=== PATIENT | male | born 2000 | race Caucasian/White ===

== ENCOUNTER 2019-10-19 20:52 | Emergency (ER) | payer BC ==
[2019-10-19] MEDS ORDERED: DIPHENHYDRAMINE 25 MG TAB/CAP ONE (21:18)
[2019-10-19] MEDS ORDERED: predniSONE 20 MG TAB ONE (21:18)
[2019-10-19] MEDS ORDERED: FAMOTIDINE 20 MG TAB ONE (21:19)
[2019-10-19] MEDS ORDERED: dexAMETHasone 4 MG/ML VIAL ONE ×2 (21:29→21:42)
[2019-10-19] MEDS ORDERED: dexAMETHasone 10 MG/ML VIAL ONE (21:44)
--- NOTE | 2019-10-19 22:34 | ER ---
Nurse's Notes [facility] Name: Bradford Somers Age: 19 yrs Sex: Male : 2000 Arrival Date: 10/19/2019 Time: 21:00 Bed 18 Private MD: Diagnosis: Urticaria;Angioneurotic edema Presentation: 10/19 21:36 Presenting complaint: Patient states: "there was cookies on the counter when I woke up j from a nap and I ate one and it had peanut butter in it. I am allergic to peanut butter. I took 50 mg of Benadryl before coming, but I was feeling pretty bad at first.". Transition of care: patient was not received from another setting of care. Onset: The symptoms/episode began/occurred suddenly. Anaphylaxis evaluation, no signs or symptoms of anaphylaxis were noted. Onset of symptoms was October 19, 2019. Risk Assessment: Do you want to hurt yourself or someone else? Patient reports no desire to harm self or others. Initial Sepsis Screen: Does the patient meet any 2 criteria? No. Patient's initial sepsis screen is negative. Does the patient have a suspected source of infection? No. Patient's initial sepsis screen is negative. Care prior to arrival: None. 21:36 Method Of Arrival: Ambulatory [facility] 21:36 Acuity: DON 3 jd3 Historical: - Allergies: 21:39 azithromycin; jd3 - Home Meds: 21:39 None [Active]; jd3 - PMHx: 21:39 None; jd3 - PSHx: 21:39 left arm; Appendectomy; jd3 - Immunization history:: Adult Immunizations up to date. - Coronavirus screen:: The patient has NOT traveled to [place] in the past 14 days. The patient has NOT had contact with known/suspected case of Coronavirus? Proceed with normal triage procedures. - Family history:: not pertinent. - Social history:: Smoking status: Patient reports the use of cigarette tobacco products, smokes one-half pack cigarettes per day. - Ebola Screening: : Patient negative for fever greater than or equal to 101.5 degrees Fahrenheit, and additional compatible Ebola Virus Disease symptoms. Screenin:42 Abuse screen: Denies threats or abuse. Nutritional screening: No deficits noted. jd3 Tuberculosis screening: No symptoms or risk factors identified. Fall Risk Ambulatory Aid- None/Bed Rest/Nurse Assist (0 pts). Gait- Normal/Bed Rest/Wheelchair (0 pts) Mental Status- Oriented to own ability (0 pts). Total Ramirez Fall Scale indicates No Risk (0-24 pts). Assessment: 21:40 General: Appears in no apparent distress. comfortable, Behavior is calm, cooperative, jd3 appropriate for age. Pain: Denies pain. Neuro: Level of Consciousness is awake, alert, obeys commands, Oriented to person, place, time, situation. Cardiovascular: Denies chest pain, Capillary refill < 3 seconds Patient's skin is warm and dry. Respiratory: Reports shortness of breath prior to arrival Airway is patent Respiratory effort is even, unlabored, Respiratory pattern is regular, symmetrical, Breath sounds are clear bilaterally. Denies cough, shortness of breath. GI: No signs and/or symptoms were reported involving the gastrointestinal system. Reports vomiting and abdominal pain prior to arrival. : No signs and/or symptoms were reported regarding the genitourinary system. EENT: small amount of swelling noted to the uvula . Derm: Skin is intact, Skin is dry, Skin is normal, Skin temperature is warm. Musculoskeletal: Circulation, motion, and sensation intact. Range of motion: intact in all extremities. 22:04 Reassessment: Patient appears in no apparent distress at this time. Patient and/or jd3 family updated on plan of care and expected duration. Pain level reassessed. Patient is alert, oriented x 3, equal unlabored respirations, skin warm/dry/pink. reported understanding of discharge instructions, even and steady gait upon discharge. Patient denies pain at this time. Patient states feeling better. Vital Signs: 21:39 BP 130 / 70; Pulse 88; Resp 16 S; Temp 97.9(TE); Pulse Ox 100% on R/A; Weight 117.93 kg jd3 (R); Height 6 ft. 2 in. (187.96 cm) (R); Pain 0/10; 21:39 BP 137 / 63; Pulse 65; Resp 16 S; Pulse Ox 100% on R/A; Pain 0/10; jd3 21:39 Body Mass Index 33.38 (117.93 kg, 187.96 cm) jd3 ED Course: 21:00 Patient arrived in ED. ma2 21:02 José Macias MD is Attending Physician. daniel 21:10 Loy Hairston RN is Primary Nurse. jd3 21:38 Triage completed. jd3 21:39 Arm band placed on. jd3 21:42 Patient has correct armband on for positive identification. Bed in low position. Call jd3 light in reach. Side rails up X 1. Adult w/ patient. 22:04 No provider procedures requiring assistance completed. Patient did not have IV access jd3 during this emergency room visit. Administered Medications: 21:30 Drug: predniSONE 40 mg Route: PO; jd3 22:03 Follow up: Response: No adverse reaction jd3 21:30 Drug: Pepcid 40 mg Route: PO; jd3 22:03 Follow up: Response: No adverse reaction jd3 21:30 Drug: Benadryl 50 mg Route: PO; jd3 22:04 Follow up: Response: No adverse reaction jd3 21:45 Drug: Decadron 10 mg Route: IM; Site: right deltoid; jd3 22:03 Follow up: Response: No adverse reaction jd3 Outcome: 21:16 Discharge ordered by . daniel 22:04 Discharged to home ambulatory, with friend. jd3 22:04 Condition: stable 22:04 Discharge instructions given to patient, friend, Instructed on discharge instructions, follow up and referral plans. medication usage, Demonstrated understanding of instructions, follow-up care, medications, Prescriptions given X 4. 22:06 Patient left the ED. jd3 Signatures: José Macias MD MD cha Davies, Jonathon, RENÉE RN jd3 Aislinn Maki MD MD ma2 Corrections: (The following items were deleted from the chart) 22:06 21:39 BP 130 / 70; Pulse 88bpm; Resp 16bpm; Spontaneous; Pulse Ox 100% RA; 117.93 kg jd3 Reported; Height 6 ft. 2 in. Reported; BMI: 33.3; Pain 0/10; jd3
--- NOTE | 2019-10-19 22:34 | EDPHYS ---
Physician Documentation [facility] Name: Bradford Somers Age: 19 yrs Sex: Male : 2000 Arrival Date: 10/19/2019 Time: 21:00 Bed 18 Private MD: ED Physician José Macias HPI: 10/19 21:11 This 19 yrs old Male presents to ER via Unassigned with complaints of daniel Allergic Reaction. 21:11 The patient presents with difficulty swallowing, nasal itching, rash, redness of skin, daniel runny nose, swelling of the lips. Onset: The symptoms/episode began/occurred just prior to arrival. Associated signs and symptoms: Pertinent positives: hives, nausea, rash, shortness of breath. Possible causes: nuts. At home the patient or guardian has treated the symptoms with Benadryl. Severity of symptoms: At their worst the symptoms were mild moderate in the emergency department the symptoms have improved mildly. The patient has experienced similar episodes in the past, a few times. Historical: - Allergies: 21:39 azithromycin; jd3 - Home Meds: 21:39 None [Active]; jd3 - PMHx: 21:39 None; jd3 - PSHx: 21:39 left arm; Appendectomy; jd3 - Immunization history:: Adult Immunizations up to date. - Coronavirus screen:: The patient has NOT traveled to [place] in the past 14 days. The patient has NOT had contact with known/suspected case of Coronavirus? Proceed with normal triage procedures. - Family history:: not pertinent. - Social history:: Smoking status: Patient reports the use of cigarette tobacco products, smokes one-half pack cigarettes per day. - Ebola Screening: : Patient negative for fever greater than or equal to 101.5 degrees Fahrenheit, and additional compatible Ebola Virus Disease symptoms. ROS: 21:11 Constitutional: Negative for fever, chills, and weight loss, Eyes: Negative for injury, daniel pain, redness, and discharge, ENT: Negative for injury, pain, and discharge, Neck: Negative for injury, pain, and swelling, Cardiovascular: Negative for chest pain, palpitations, and edema, Respiratory: Negative for shortness of breath, cough, wheezing, and pleuritic chest pain, Abdomen/GI: Negative for abdominal pain, nausea, vomiting, diarrhea, and constipation, Back: Negative for injury and pain, : Negative for injury, bleeding, discharge, and swelling, MS/Extremity: Negative for injury and deformity, Neuro: Negative for headache, weakness, numbness, tingling, and seizure, Psych: Negative for depression, anxiety, suicide ideation, homicidal ideation, and hallucinations, Allergy/Immunology: Negative for hives, rash, and allergies, Endocrine: Negative for neck swelling, polydipsia, polyuria, polyphagia, and marked weight changes, Hematologic/Lymphatic: Negative for swollen nodes, abnormal bleeding, and unusual bruising. 21:11 Skin: Positive for rash, swelling. Exam: 21:14 Constitutional: This is a well developed, well nourished patient who is awake, alert, daniel and in no acute distress. Head/Face: Normocephalic, atraumatic. Eyes: Pupils equal round and reactive to light, extra-ocular motions intact. Lids and lashes normal. Conjunctiva and sclera are non-icteric and not injected. Cornea within normal limits. Periorbital areas with no swelling, redness, or edema. Neck: Trachea midline, no thyromegaly or masses palpated, and no cervical lymphadenopathy. Supple, full range of motion without nuchal rigidity, or vertebral point tenderness. No Meningismus. Chest/axilla: Normal chest wall appearance and motion. Nontender with no deformity. No lesions are appreciated. Cardiovascular: Regular rate and rhythm with a normal S1 and S2. No gallops, murmurs, or rubs. Normal PMI, no JVD. No pulse deficits. Respiratory: Lungs have equal breath sounds bilaterally, clear to auscultation and percussion. No rales, rhonchi or wheezes noted. No increased work of breathing, no retractions or nasal flaring. Abdomen/GI: Soft, non-tender, with normal bowel sounds. No distension or tympany. No guarding or rebound. No evidence of tenderness throughout. Back: No spinal tenderness. No costovertebral tenderness. Full range of motion. Male : Normal genitalia with no discharge or lesions. MS/ Extremity: Pulses equal, no cyanosis. Neurovascular intact. Full, normal range of motion. Neuro: Awake and alert, GCS 15, oriented to person, place, time, and situation. Cranial nerves II-XII grossly intact. Motor strength 5/5 in all extremities. Sensory grossly intact. Cerebellar exam normal. Normal gait. Psych: Awake, alert, with orientation to person, place and time. Behavior, mood, and affect are within normal limits. 21:14 ENT: Mouth: Lips: moist, Oral mucosa: normal, pink and intact, moist, Gums: normal with healthy appearance, Tongue: is normal, abscess, is not appreciated, drooling, is not appreciated, Posterior pharynx: Uvula: erythema, swelling, that is mild. Vital Signs: 21:39 BP 130 / 70; Pulse 88; Resp 16 S; Temp 97.9(TE); Pulse Ox 100% on R/A; Weight 117.93 kg jd3 (R); Height 6 ft. 2 in. (187.96 cm) (R); Pain 0/10; 21:39 BP 137 / 63; Pulse 65; Resp 16 S; Pulse Ox 100% on R/A; Pain 0/10; jd3 21:39 Body Mass Index 33.38 (117.93 kg, 187.96 cm) [facility] MDM: 21:02 Patient medically screened. [facility] 21:15 Data reviewed: vital signs, nurses notes. [facility] Administered Medications: 21:30 Drug: predniSONE 40 mg Route: PO; j 22:03 Follow up: Response: No adverse reaction [facility] 21:30 Drug: Pepcid 40 mg Route: PO; jd3 22:03 Follow up: Response: No adverse reaction j 21:30 Drug: Benadryl 50 mg Route: PO; jd3 22:04 Follow up: Response: No adverse reaction [facility] 21:45 Drug: Decadron 10 mg Route: IM; Site: right deltoid; jd3 22:03 Follow up: Response: No adverse reaction [facility] Disposition: 10/19/19 21:16 Discharged to Home. Impression: Urticaria, Angioneurotic edema. - Condition is Stable. - Discharge Instructions: Food Allergy, Hives, Angioedema, Angioedema, [id number], Food Allergy, [id number], Hives, [id number]. - Prescriptions for Benadryl 25 mg Oral Capsule - take 2 capsule by ORAL route every 6 hours As needed; 45 tablet. Pepcid 20 mg Oral Tablet - take 1 tablet by ORAL route every 12 hours for 10 days; 20 tablet. Prednisone 20 mg Oral Tablet - take 2 tablet by ORAL route once daily for 5 days; 10 tablet. EpiPen 0.3 mg Injection auto- injector - inject 1 pen by INTRAMUSCULAR route one time Inject into the outer portion of the thigh, through clothing if necessary. Indicated in the emergency treatment of allergic reactions; 1 Cartridge. - Medication Reconciliation Form, Thank You Letter, Antibiotic Education, Prescription Opioid Use form. - Follow up: Private Physician; When: 1 - 2 days; Reason: Recheck today's complaints, Continuance of care, Re-evaluation by your physician. - Problem is new. - Symptoms have improved. Signatures: José Macias MD MD cha Davies, Jonathon RN RN jd3 Corrections: (The following items were deleted from the chart) 22:06 21:16 10/19/2019 21:16 Discharged to Home. Impression: Urticaria; Angioneurotic edema. jd3 Condition is Stable. Forms are Medication Reconciliation Form, Thank You Letter, Antibiotic Education, Prescription Opioid Use. Follow up: Private Physician; When: 1 - 2 days; Reason: Recheck today's complaints, Continuance of care, Re-evaluation by your physician. Problem is new. Symptoms have improved. daniel
[2019-10-19 23:33] VITALS: BP 137/63; TEMP 97.9; O2SAT 100
== END 2019-10-19 22:06 | disposition home or self-care (01) ==
LOC: ER 20:52
DX: L50.9 Urticaria, unspecified (principal); T78.3XXA Angioneurotic edema, initial encounter; F17.210 Nicotine dependence, cigarettes, uncomplicated; Z88.1 Allergy status to other antibiotic agents
CPT/HCPCS: 96372; 99283; J1100; J7512

== ENCOUNTER 2020-05-19 10:36 | Emergency (ER) | payer BC ==
[2020-05-19] MEDS ORDERED: MEPERIDINE HCL 50 MG/ML ONE (11:27)
[2020-05-19] MEDS ORDERED: dexAMETHasone 10 MG/ML VIAL ONE (11:27)
--- NOTE | 2020-05-19 11:44 | RAD REPORT ---
EXAM DESCRIPTION: CT - Spine Lumbar Wo Con - 05/19/2020 11:20 am CLINICAL HISTORY: PAIN, lifting injury COMPARISON: None. TECHNIQUE: Thin section axial imaging of the lumbar spine was performed. Sagittal and coronal recon struction images were generated and reviewed. All CT scans are performed using dose optimization technique as appropriate and may include automated exposure control or mA/KV adjustment according to patient size. FINDINGS: Lumbar bodies are normal in height and alignment. No fracture or acute bone finding. No pa rs defects are identified. No paraspinal soft tissue mass. The L5-S1 disc level shows protruding disc material in the midline and extending into the left exit f oramen. Bulging disc material displaces the S1 nerve roots, left greater than right. Correlation is n eeded with any L5 or S1 radicular symptoms on the left. No other disc herniation or significant disc bulge identifiable. Central canal detail is inherently l imited. IMPRESSION: Protruding disc material midline and left-sided L5-S1 canal as detailed. Correlation is needed with any left lower extremity radiculopathy. No fracture or acute bone finding.
--- NOTE | 2020-05-19 11:51 | RAD REPORT ---
EXAM DESCRIPTION: CT - Thoracic Spine W/o Cont - 05/19/2020 11:20 am CLINICAL HISTORY: Persistent back pain following lifting injury COMPARISON: No remote imaging TECHNIQUE: Axial 3 mm thick images of the thoracic spine were obtained with sagittal and coronal rec onstruction images generated and reviewed. All CT scans are performed using dose optimization technique as appropriate and may include automated exposure control or mA/KV adjustment according to patient size. FINDINGS: T1-T9 bodies are normal in height. All thoracic vertebrae show normal alignment. There is subtle wedging in the T10 and T11 vertebral bodies. No acute fracture lines are present. There degene rative changes to the inferior endplates of both of these vertebrae. This configuration is believed t o be chronic. T9-10 disc space is narrowed slightly. No fracture or acute bony abnormality. No paraspinal mass or hematoma. Central canal detail is inherently limited on CT imaging. Patient has a 15 millimeter pulmonary nodule in the posterior right lower lobe. This has a coarse elisabeth tral calcification which is an indicator of a benign nodule, most likely granuloma. IMPRESSION: No acute thoracic spine finding identifiable. The slight wedging of the T10 and T11 vert ebrae is believed to be chronic. A 15 millimeter right lower lobe pulmonary nodules shows coarse central calcification which is an ind icator of a benign process. If the patient has persistent unexplained lower thoracic pain, follow-up outpatient MR imaging could be performed to assess for the possibility of acute marrow edema.
[2020-05-19] MEDS ORDERED: ONDANSETRON 4 MG/2 ML VIAL ONE (11:59)
--- NOTE | 2020-05-19 12:32 | EDPHYS ---
Physician Documentation [facility] Name: Bradford Somers Age: 20 yrs Sex: Male : 2000 Arrival Date: 05/19/2020 Time: 10:38 Bed 6 Private MD: ED Physician Henry Wiggins HPI: 05/19 12:27 This 20 yrs old Male presents to ER via Ambulatory with complaints of Back rn Pain. 12:27 The patient presents with pain that is acute, that is chronic. The symptoms are located rn in the low back, lumbar area. The pain radiates to the left leg. Associated signs and symptoms: Pertinent negatives: chest pain, fever, hematuria, incontinence, nausea, numbness, tingling, urinary retention, vomiting, weakness. Modifying factors: The patient symptoms are alleviated by remaining still, the patient symptoms are aggravated by any movement. Severity of symptoms: At their worst the symptoms were moderate, in the emergency department the symptoms have improved. The patient has experienced similar episodes in the past. The patient has not recently seen a physician. Reports chronic lower back pain with radiation to left leg, helped move yesterday, nothing too heavy, now feeling pain mid back, no bowel/bladder problems. No abd pain/chest pain/sob/fever/trauma. . Historical: - Allergies: 10:47 Azithromycin; ss 10:47 "Mycins"; ss - Home Meds: 10:47 None [Active]; ss - PMHx: 10:47 None; ss - PSHx: 10:47 left arm; Appendectomy; ss - Immunization history:: Adult Immunizations up to date. - Social history:: Smoking status: Patient denies any tobacco usage or history of. - Family history:: not pertinent. - Hospitalizations: : No recent hospitalization is reported. ROS: 12:27 Constitutional: Negative for fever, chills, and weight loss, Eyes: Negative for injury, rn pain, redness, and discharge, Neck: Negative for injury, pain, and swelling, Cardiovascular: Negative for chest pain, palpitations, and edema, Respiratory: Negative for shortness of breath, cough, wheezing, and pleuritic chest pain, Abdomen/GI: Negative for abdominal pain, nausea, vomiting, diarrhea, and constipation, Back: + mid and lower back pain : Negative for injury, bleeding, discharge, and swelling, MS/Extremity: Negative for injury and deformity, Skin: Negative for injury, rash, and discoloration, Neuro: Negative for headache, weakness, numbness, tingling, and seizure. Exam: 12:27 Constitutional: This is a well developed, well nourished patient who is awake, alert, rn and in no acute distress. Head/Face: Normocephalic, atraumatic. Eyes: Pupils equal round and reactive to light, extra-ocular motions intact. Lids and lashes normal. Conjunctiva and sclera are non-icteric and not injected. Cornea within normal limits. Periorbital areas with no swelling, redness, or edema. Cardiovascular: Regular rate and rhythm with a normal S1 and S2. No gallops, murmurs, or rubs. Normal PMI, no JVD. No pulse deficits. Respiratory: Lungs have equal breath sounds bilaterally, clear to auscultation and percussion. No rales, rhonchi or wheezes noted. No increased work of breathing, no retractions or nasal flaring. Abdomen/GI: Soft, non-tender, with normal bowel sounds. No distension or tympany. No guarding or rebound. No evidence of tenderness throughout. Back: + mild lower thoracic and lower lumbar tenderness Skin: Warm, dry MS/ Extremity: Pulses equal, no cyanosis. Neuro: Awake and alert, GCS 15, Motor strength 5/5 in all extremities. Sensory grossly intact. Vital Signs: 10:45 BP 130 / 86; Pulse 104; Resp 15; Temp 98.0(TE); Pulse Ox 99% on R/A; Weight 122.47 kg; ss Height 6 ft. 1 in. (185.42 cm); Pain 5/10; 11:50 BP 115 / 60; Pulse 58; Resp 17; Pulse Ox 96% on R/A; tw2 12:49 BP 103 / 44; Pulse 53; Resp 17; Pulse Ox 96% on R/A; tw2 13:05 Pain 3/10; tw2 10:45 Body Mass Index 35.62 (122.47 kg, 185.42 cm) MDM: 10:57 Patient medically screened. rn 12:27 Differential diagnosis: arthritis, chronic back pain, disc problem, radiculopathy. Data rn reviewed: vital signs, nurses notes, radiologic studies, CT scan, and as a result, I will discharge patient. Counseling: I had a detailed discussion with the patient and/or guardian regarding: the historical points, exam findings, and any diagnostic results supporting the discharge/admit diagnosis, radiology results, the need for outpatient follow up, to return to the emergency department if symptoms worsen or persist or if there are any questions or concerns that arise at home. Response to treatment: the patient's symptoms have markedly improved after treatment, and as a result, I will discharge patient. Special discussion: I discussed with the patient/guardian in detail that at this point there is no indication for admission to the hospital. It is understood, however, that if the symptoms persist or worsen the patient needs to return immediately for re-evaluation. Further emergent ED testing is not indicated at this point in time. I discussed with the patient/guardian in detail the need to arrange with the PCP or specialist further outpatient testing, MRI, Based on the history and exam findings, there is no indication for further emergent testing or inpatient evaluation. I discussed with the patient/guardian the need to see the back specialist for further evaluation of the symptoms. 05/19 11:06 Order name: CT Lumbar Spine Wo Con; Complete Time: 11:54 rn 05/19 11:06 Order name: CT Thoracic Spine Wo Cont; Complete Time: 11:54 rn 05/19 11:06 Order name: IV Start; Complete Time: 11:49 rn Administered Medications: 11:44 Drug: Demerol 50 mg Route: IVP; Site: right antecubital; tw2 13:05 Follow up: Pain 3/10 Adult; Response: No adverse reaction; Pain is decreased; RASS: tw2 Alert and Calm (0) 11:46 Drug: Decadron - Dexamethasone 10 mg Route: IVP; Site: right antecubital; tw2 13:05 Follow up: Response: No adverse reaction tw2 11:48 Drug: Zofran (Ondansetron) 4 mg Route: IVP; Site: right antecubital; tw2 12:01 Follow up: Response: No adverse reaction; Nausea is decreased tw2 Disposition: 05/19/20 12:32 Discharged to Home. Impression: Radiculopathy, lumbosacral region, Low back pain, Bulging intervertebral disc - L5-S1, T9-T10. - Condition is Stable. - Discharge Instructions: Back Pain, Adult, Lumbosacral Radiculopathy. - Prescriptions for Cyclobenzaprine 10 mg Oral Tablet - take 1 tablet by ORAL route every 8 hours As needed; 15 tablet. Tramadol 50 mg Oral Tablet - take 1 tablet by ORAL route every 8 hours as needed; 15 tablet. Medrol ([place]) 4 mg Oral Tablets, Dose Pack - take 1 tablet by ORAL route as directed - follow package instructions; 1 packet. - Medication Reconciliation Form, Thank You Letter, Antibiotic Education, Prescription Opioid Use, Work release form form. - Follow up: Private Physician; When: As needed; Reason: Recheck today's complaints, Re-evaluation by your physician. - Problem is new. - Symptoms have improved. Signatures: Dispatcher [employer] EDMS Henry Wiggins MD MD rn Smirch, Shelby, RN RN Mima Galeana RN RN tw2 Corrections: (The following items were deleted from the chart) 13:06 12:32 05/19/2020 12:32 Discharged to Home. Impression: Radiculopathy, lumbosacral tw2 region; Low back pain; Bulging intervertebral disc - L5-S1, T9-T10. Condition is Stable. Forms are Work release form, Medication Reconciliation Form, Thank You Letter, Antibiotic Education, Prescription Opioid Use. Follow up: Private Physician; When: As needed; Reason: Recheck today's complaints, Re-evaluation by your physician. Problem is new. Symptoms have improved. rn
--- NOTE | 2020-05-19 12:32 | ER ---
Nurse's Notes [facility] Name: Bradford Somers Age: 20 yrs Sex: Male : 2000 Arrival Date: 05/19/2020 Time: 10:38 Bed 6 Private MD: Diagnosis: Radiculopathy, lumbosacral region;Low back pain;Bulging intervertebral disc - L5-S1, T9-T10 Presentation: 05/19 10:45 Chief complaint: Patient states: Helped family member move yesterday. Denies heavy ss lifting, but repetitive motions. Woke up this morning with excruciating R mid back pain. Reports that this has occurred before in the past which led to sciatica. Coronavirus screen: Client denies travel out of the [place] in the last 14 days. Ebola Screen: Patient denies exposure to infectious person. Patient denies travel to an Ebola-affected area in the 21 days before illness onset. Initial Sepsis Screen: Does the patient meet any 2 criteria? No. Patient's initial sepsis screen is negative. Does the patient have a suspected source of infection? No. Patient's initial sepsis screen is negative. Risk Assessment: Do you want to hurt yourself or someone else? Patient reports no desire to harm self or others. Onset of symptoms was May 19, 2020. 10:45 Method Of Arrival: Ambulatory ss 10:45 Acuity: DON 3 ss Historical: - Allergies: 10:47 Azithromycin; ss 10:47 "Mycins"; ss - Home Meds: 10:47 None [Active]; ss - PMHx: 10:47 None; ss - PSHx: 10:47 left arm; Appendectomy; ss - Immunization history:: Adult Immunizations up to date. - Social history:: Smoking status: Patient denies any tobacco usage or history of. - Family history:: not pertinent. - Hospitalizations: : No recent hospitalization is reported. Screenin:53 Abuse screen: Denies threats or abuse. Nutritional screening: No deficits noted. tw2 Tuberculosis screening: No symptoms or risk factors identified. Fall Risk None identified. Assessment: 10:48 General: Appears in no apparent distress. uncomfortable, Behavior is calm, cooperative, tw2 appropriate for age. Pain: Complains of pain in lumbar area, left mid back and right mid back. Neuro: Level of Consciousness is awake, alert, obeys commands, Oriented to person, place, time, situation. Cardiovascular: Heart tones S1 S2 Patient's skin is warm and dry. Respiratory: Airway is patent Respiratory effort is even, unlabored, Respiratory pattern is regular, symmetrical, Breath sounds are clear bilaterally. GI: No signs and/or symptoms were reported involving the gastrointestinal system. Abdomen is flat, Bowel sounds present X 4 quads. : No signs and/or symptoms were reported regarding the genitourinary system. EENT: No signs and/or symptoms were reported regarding the EENT system. Derm: No signs and/or symptoms reported regarding the dermatologic system. Musculoskeletal: Range of motion: intact in all extremities, Reports pain in back. 11:50 Reassessment: Patient appears in no apparent distress at this time. Patient and/or tw2 family updated on plan of care and expected duration. Pain level reassessed. Patient is alert, oriented x 3, equal unlabored respirations, skin warm/dry/pink. 13:05 Reassessment: Patient appears in no apparent distress at this time. Patient and/or tw2 family updated on plan of care and expected duration. Pain level reassessed. Patient is alert, oriented x 3, equal unlabored respirations, skin warm/dry/pink. Patient states feeling better. Patient states symptoms have improved. Vital Signs: 10:45 BP 130 / 86; Pulse 104; Resp 15; Temp 98.0(TE); Pulse Ox 99% on R/A; Weight 122.47 kg; Height 6 ft. 1 in. (185.42 cm); Pain 5/10; 11:50 BP 115 / 60; Pulse 58; Resp 17; Pulse Ox 96% on R/A; tw2 12:49 BP 103 / 44; Pulse 53; Resp 17; Pulse Ox 96% on R/A; tw2 13:05 Pain 3/10; tw2 10:45 Body Mass Index 35.62 (122.47 kg, 185.42 cm) ED Course: 10:38 Patient arrived in ED. ag5 10:47 Triage completed. ss 10:47 Arm band placed on right wrist. 10:48 Bed in low position. Call light in reach. Pulse ox on. NIBP on. tw2 10:53 Mima Ramos RN is Primary Nurse. tw2 10:57 Henry Wiggins MD is Attending Physician. rn 11:20 CT Lumbar Spine Wo Con In Process Unspecified. EDMS 11:20 CT Thoracic Spine Wo Cont In Process Unspecified. EDMS 11:44 Inserted saline lock: 20 gauge in right antecubital area, using aseptic technique. tw2 13:06 No provider procedures requiring assistance completed. IV discontinued, intact, tw2 bleeding controlled, No redness/swelling at site. Pressure dressing applied. Administered Medications: 11:44 Drug: Demerol 50 mg Route: IVP; Site: right antecubital; tw2 13:05 Follow up: Pain 3/10 Adult; Response: No adverse reaction; Pain is decreased; RASS: tw2 Alert and Calm (0) 11:46 Drug: Decadron - Dexamethasone 10 mg Route: IVP; Site: right antecubital; tw2 13:05 Follow up: Response: No adverse reaction tw2 11:48 Drug: Zofran (Ondansetron) 4 mg Route: IVP; Site: right antecubital; tw2 12:01 Follow up: Response: No adverse reaction; Nausea is decreased tw2 Outcome: 12:32 Discharge ordered by . rn 13:06 Discharged to home ambulatory, with family. tw2 13:06 Condition: stable 13:06 Discharge instructions given to patient, family, Instructed on discharge instructions, follow up and referral plans. no drinking with medication, no driving heavy equipment, medication usage, Demonstrated understanding of instructions, follow-up care, medications, Prescriptions given X 3. 13:06 Patient left the ED. tw2 Signatures: Dispatcher [employer] EDHenry Allen MD MD rn Smirch, Shelby, RN RN ss Wise, Tara, RN RN tw2 Dylon Farr ag5
[2020-05-19 13:10] VITALS: TEMP 98
[2020-05-19 13:11] VITALS: O2SAT 96
[2020-05-19 13:12] VITALS: BP 103/44
== END 2020-05-19 13:06 | disposition home or self-care (01) ==
LOC: ER 10:36
DX: M54.17 Radiculopathy, lumbosacral region (principal); M51.27 Other intervertebral disc displacement, lumbosacral region; M51.24 Other intervertebral disc displacement, thoracic region; Z88.3 Allergy status to other anti-infective agents
CPT/HCPCS: 72131; 72128; 96375; 96374; 99284; J1100; J2175; J2405